=== PATIENT | female | born 1975 | race Caucasian/White ===

== ENCOUNTER 2018-09-13 18:55 | Emergency (ER) | payer OTHER ==
[~2018-09-13] VITALS: Ht 152.4 cm; Wt 53.1 kg
[2018-09-13] MEDS ORDERED: BIRTH CONTROL (19:33)
[2018-09-13 20:24] LABS: ABSOLUTE BASOPHILS 0.1 thou/uL (0.0-0.2); ABSOLUTE EOSINOPHILS 0.1 thou/uL (0.0-0.7); ABSOLUTE LYMPHOCYTES 2.9 thou/uL (0.8-5.3); ABSOLUTE MONOCYTES 0.6 thou/uL (0.0-1.2); ABSOLUTE NEUTROPHILS 6.2 thou/uL (1.6-8.1); BASOPHILS 0.8 %; EOSINOPHILS 1.2 %; HEMATOCRIT 42.7 % (37.0-47.0); HEMOGLOBIN 14.7 gm/dL (12.0-15.0); LYMPHOCYTES 29.3 %; MCH 32.6 pg (26.0-34.0); MCHC 34.6 g/dL (28.0-37.0); MCV 94.2 fL (80.0-100.0); MONOCYTES 6.3 %; MPV 8.5 fl. (7.2-11.1); NUCLEATED RBCS 0 /100WBC; PLATELET COUNT* 313 thou/uL (150-400); POLYS 62.4 %; RBC 4.53 mil/uL (4.20-5.00); RDW-CV 12.6 % (10.5-14.5); WBC 9.9 thou/uL (4.0-11.0)
[2018-09-13 20:31] LABS: CALCIUM 8.4 mg/dL (8.5-10.1); CREATININE 0.7 mg/dL (0.6-1.3); POTASSIUM 3.7 mmol/L (3.5-5.1)
[2018-09-13 20:35] LABS: ALBUMIN 3.4 g/dL (3.4-5.0); TOTAL BILIRUBIN 0.2 mg/dL (<0.1-1.0); TOTAL PROTEIN 7.6 g/dL (6.4-8.2)
[2018-09-13 20:44] LABS: URINE BILIRUBIN NEGATIVE (Negative); URINE BLOOD 2+ (Negative); URINE CLARITY CLEAR; URINE COLOR YELLOW; URINE GLUCOSE-RANDOM NEGATIVE (Negative); URINE KETONES NEGATIVE (Negative); URINE LEUKOCYTES-REFLEX NEGATIVE (Negative); URINE NITRITE-REFLEX NEGATIVE (Negative); URINE PROTEIN NEGATIVE (Negative); URINE UROBILINOGEN 0.2 E.U./dl (0.2-1.0)
[2018-09-13 20:54] LABS: CASTS None Seen /LPF (None Seen); CRYSTALS None Seen /LPF (None Seen); MUCUS None Seen strn/LPF (None Seen); SQUAMOUS 4-10 Moderate /LPF (0-3); URINE RBC 3-10 Few /HPF (0-2)
[2018-09-13 20:55] LABS: BACTERIA-REFLEX 1-9 Few /HPF (None Seen); URINE WBC-REFLEX None Seen /HPF (0-5)
[2018-09-13] MEDS ORDERED: ZOFRAN ODT4 MG PO (22:10)
[2018-09-13 22:20] VITALS: BP 103/61
--- NOTE | 2018-09-15 11:37 | EKG ---
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
== END 2018-09-13 22:20 | disposition home or self-care (01) ==
LOC: M.ERS 18:55
PROVIDERS: Nurse Practitioner Family
DX: A08.4 Viral intestinal infection, unspecified (principal); R31.9 Hematuria, unspecified; R11.2 Nausea with vomiting, unspecified; Z88.1 Allergy status to other antibiotic agents

== ENCOUNTER 2019-07-28 20:53 | Emergency (ER) | payer OTHER ==
[~2019-07-28] VITALS: Ht 152.4 cm; Wt 52.2 kg
[~2019-07-28 20:53] MED LIST: BIRTH CONTROL; ZOFRAN ODT4 MG PO
[2019-07-28 21:35] LABS: INFLUENZA A ANTIGEN Negative (Negative); INFLUENZA B ANTIGEN Negative (Negative)
[2019-07-28 21:53] LABS: ABSOLUTE BASOPHILS 0.1 thou/uL (0.0-0.2); ABSOLUTE EOSINOPHILS 0.1 thou/uL (0.0-0.7); ABSOLUTE LYMPHOCYTES 3.3 thou/uL (0.8-5.3); ABSOLUTE MONOCYTES 0.8 thou/uL (0.0-1.2); ABSOLUTE NEUTROPHILS 9.7 thou/uL (1.6-8.1); BASOPHILS 0.7 %; EOSINOPHILS 0.4 %; HEMATOCRIT 40.7 % (37.0-47.0); HEMOGLOBIN 14.2 gm/dL (12.0-15.0); MCH 32.8 pg (26.0-34.0); MCHC 34.8 g/dL (28.0-37.0); MCV 94.2 fL (80.0-100.0); MONOCYTES 5.5 %; MPV 8.2 fl. (7.2-11.1); NUCLEATED RBCS 0 /100WBC; PLATELET COUNT* 347 thou/uL (150-400); POLYS 69.4 %; RBC 4.32 mil/uL (4.20-5.00); RDW-CV 12.9 % (10.5-14.5); WBC 13.9 thou/uL (4.0-11.0)
[2019-07-28 22:03] LABS: CREATININE 0.9 mg/dL (0.6-1.3); POTASSIUM 3.5 mmol/L (3.5-5.1)
[2019-07-28] MEDS ORDERED: PROAIR HFA8.5 GM INH (22:30)
[2019-07-28 22:44] VITALS: BP 119/56
--- NOTE | 2019-07-29 09:37 | EKG ---
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1975 Requested By: Isidra Izaguirre Order Number: [id number] MD: Link Calderon Measurements Intervals [place] Rate: 77 P: 16 MI: 111 QRS: 74 QRSD: 88 T: 54 QT: 389 QTc: 441 Interpretive Statements Sinus rhythm Borderline short MI interval Compared to ECG 09/13/2018 20:27:39 No significant changes Electronically Signed On 07-29-2019 9:36:09 CDT by Link Calderon [email or web address] <ELECTRONICALLY SIGNED> By: Link Calderon MD, [facility] 07/29/19 0936 35 35 Link Calderon MD, [facility] /EPI
== END 2019-07-28 22:45 | disposition home or self-care (01) ==
LOC: M.ERS 20:53
PROVIDERS: Emergency Medicine
DX: J06.9 Acute upper respiratory infection, unspecified (principal); Z88.1 Allergy status to other antibiotic agents